=== PATIENT | female | born 1990 | race Caucasian/White ===

== ENCOUNTER 2017-05-03 16:05 | Emergency (ER) | payer MEDICAID ==
[~2017-05-03] VITALS: Ht 157.5 cm; Wt 63.0 kg
[2017-05-03 16:42] LABS: HEMATOCRIT 42.3 % (34.6-47.8); HEMOGLOBIN 14.3 g/dL (11.7-16.4); WHITE BLOOD COUNT 9.9 x10^3/uL (3.4-10)
[2017-05-03 16:54] LABS: ASPARTATE AMINO TRANSFERASE 18 U/L (15-37); BLOOD UREA NITROGEN 6 mg/dL (7-18)
[2017-05-03 18:11] VITALS: BP 118/74
== END 2017-05-03 18:33 | disposition home or self-care (01) ==
LOC: ED 17:31
DX: S00.512A Abrasion of oral cavity, initial encounter (principal); R56.9 Unspecified convulsions; F41.9 Anxiety disorder, unspecified; F32.9 Major depressive disorder, single episode, unspecified; W18.30XA Fall on same level, unspecified, initial encounter; Y93.89 Activity, other specified; Y92.89 Other specified places as the place of occurrence of the external cause; Y99.8 Other external cause status
CPT/HCPCS: 36415; 70450; 80053; 83605; 84703; 85025; 93005; 99285